=== PATIENT | male | born 1975 | race Caucasian/White ===

== ENCOUNTER 2021-03-23 20:30 | Emergency (ER) | payer SELFPAY ==
[2021-03-23 20:34] VITALS: BP 141/85; PULSE 84; RESP 16; TEMP 36.6; O2SAT 100
--- NOTE | 2021-03-23 20:41 | PC.NURSE ---
Pt left prior to seeing provider. No difficulty breathing, no difficulty swallowing. No sign of any kind of distress at this time.
== END 2021-03-23 20:41 | disposition left against medical advice (07) ==
LOC: ANHED 20:51
DX: R22.0 Localized swelling, mass and lump, head (principal)
CPT/HCPCS: 99199